=== PATIENT | female | born 1955 | race Caucasian/White ===

== ENCOUNTER → 2018-02-21 | Outpatient (CLI) | payer OTHER | END | disposition home or self-care (01) | LOC: NM 07:41 | DX: K30 Functional dyspepsia (principal) | CPT/HCPCS: 78264; A9541 ==

== ENCOUNTER → 2018-10-17 | Outpatient (CLI) | payer OTHER ==
--- NOTE | 2018-10-18 12:23 | SLEEP ---
DATE OF STUDY: 10/17/2018 ATTENDING PHYSICIAN: Dr. Luciano. The patient is 63 years old who weighs 184 pounds with a BMI of 35. The patient's Gordon score was 15. The patient underwent split night study at [facility]. During the night study, the patient spent 428 minutes in bed and slept for 350 minutes with a sleep efficiency of 82%. Sleep latency was 8 minutes with a REM latency of 282 minutes. Overall, sleep architecture showed increased stage 1 sleep, normal stage 2 sleep, increased slow wave and slightly reduced REM sleep, which is 16% of the total sleep time. During the initial diagnostic portion of the study, the patient slept for 107 minutes. During that time, there were 7 obstructive apneas, 13 mixed apneas, 1 central apnea and 36 hypopneas. The patient's apnea hypopnea index was 32 per hour. Supine sleep was not observed. REM sleep was not observed during the diagnostic portion. EKG monitoring revealed normal sinus rhythm. No sustained arrhythmias were observed. Average heart rate was 65 beats per minute. PLMS were seen at index of 42 per hour and 4 per hour caused EEG arousals. Nocturnal oximetry study revealed a mean oxygen saturation of 94% with lowest of 84%. 54% of time oxygen saturation remained between 80% and 89%. The patient met the criteria for CPAP initiation. It was started at 5 cm water and titrated up to 11 cm water. At the final pressure, the patient slept for 90 minutes. The patient had supine sleep as well as REM sleep. The patient's AHI was reduced to 0 per hour and oxygen saturations remained in the mid to high 80s with the lowest of 85%. The patient used small size nasal pillows. IMPRESSION: 1. Severe sleep apnea-hypopnea syndrome at an AHI of 32 per hour. 2. Nocturnal hypoxia secondary to obstructive sleep apnea and possible hypoventilation. Not completely resolved at the final CPAP pressure. 3. Severe PLMS. RECOMMENDATIONS: 1. CPAP at 11 cm water completely eliminated the patient's sleep apnea, should be used on a nightly basis. 2. I would recommend outpatient nocturnal oximetry study at the current CPAP pressure of 11 cm water to assess the need for supplemental oxygen. 3. Follow up in 4-6 weeks to assess compliance with CPAP and to document clinical improvement. 4. Weight loss is advised. 5. Avoid [employer] depressants. 6. Caution regarding driving until symptoms of sleep apnea resolve with the use of CPAP. 7. The patient should also be further evaluated for symptoms of restless legs during the day. LÁZARO BARTH MD DR: PATI/linnette JOB#: [id number] / [id number] ARI Carter MD
== END | disposition home or self-care (01) ==
LOC: SLPLAB 17:47
PROVIDERS: ATTEND Family Medicine
DX: G47.33 Obstructive sleep apnea (adult) (pediatric) (principal); G47.34 Idiopathic sleep related nonobstructive alveolar hypoventilation; G47.61 Periodic limb movement disorder
CPT/HCPCS: 95810

== ENCOUNTER → 2018-12-13 | Outpatient (CLI) | payer OTHER ==
--- NOTE | 2018-12-13 11:38 | KCIC ---
CHEST PA LATERAL CLINICAL INDICATION: COPD, former smoker. COMPARISON: None FINDINGS: Heart is normal in size. Diffuse bilateral prominence of interstitium is seen. No focal consolidation. No pneumothorax or pleural effusion. Visualized bony thorax within normal limits. IMPRESSION: Mild prominence of bilateral interstitium may be secondary to atypical/viral infection. Electronically signed by: Karthik Infante DO (12/13/2018 11:34 AM) [id number]
== END | disposition home or self-care (01) ==
LOC: KCIC 08:05
PROVIDERS: ATTEND Internal Medicine Critical Care Medicine
DX: J44.9 Chronic obstructive pulmonary disease, unspecified (principal); Z87.891 Personal history of nicotine dependence
CPT/HCPCS: 71046

== ENCOUNTER → 2019-03-21 | Outpatient (CLI) | payer OTHER ==
--- NOTE | 2019-03-21 09:11 | KCIC ---
CHEST PA LATERAL History: COPD Comparison: 12/13/2018 two-view chest x-ray exam. Findings: The left costophrenic angle was not fully included on the final image provided. The cardiomediastinal silhouette is normal. Pulmonary vasculature is normal. The lungs are clear. No pleural effusion or pneumothorax is seen. There is no acute bone abnormality. Multilevel degenerative disc space narrowing of the thoracic spine is evident. IMPRESSION: No acute cardiopulmonary process. Electronically signed by: Speedy Fitzpatrick MD (03/21/2019 9:09 AM) [facility]
== END | disposition home or self-care (01) ==
LOC: KCIC 08:52
PROVIDERS: ATTEND Internal Medicine Critical Care Medicine
DX: J44.9 Chronic obstructive pulmonary disease, unspecified (principal); M51.34 Other intervertebral disc degeneration, thoracic region; Z87.891 Personal history of nicotine dependence
CPT/HCPCS: 71046